=== PATIENT | male | born 1965 | race Caucasian/White ===

== ENCOUNTER 2021-02-22 10:26 | Emergency (ER) | payer OTHER ==
[~2021-02-22] VITALS: Ht 182.9 cm; Wt 93.1 kg
[2021-02-22 10:41] VITALS: BP 140/62
--- NOTE | 2021-02-22 10:45 | NUR ---
PT PRESENTS TO ED WITH C/O R FOREARM LACERATION THAT HE SUSTAINED AFTER LEANING OVER TO GRAB A CRIS TROWEL THAT WAS BALANCED ON A BUCKET, LACERATING R FOREARM. DEEP LACERATION NOTED, BLEEDING MINIMAL AND CONTROLLED WITH GAUZE. PT A&O, RESPS EVEN AND UNLABORED, BILLIE GARCIA. DAUGHTER AT BEDSIDE, CALL LIGHT IN REACH.
[2021-02-22] MEDS ORDERED: LIDOCAINE-MPF 1%, 5ML ONE ×2 (11:19→11:20)
--- NOTE | 2021-02-22 11:30 | NUR ---
ERPA AT BEDSIDE FOR LIDOCAINE ADMINISTRATION. EDT TO IRRIGATE WOUND PRIOR TO SUTURE PROCEDURE.
--- NOTE | 2021-02-22 11:40 | NUR ---
EDT AT BEDSIDE FOR WOUND IRRIGATION
--- NOTE | 2021-02-22 11:51 | NUR ---
ERPA AT BEDSIDE FOR SUTURE PROCEDURE
[2021-02-22] MEDS ORDERED: NEOSPORIN OINT. PKT 1 PACKET ONE (12:33)
--- NOTE | 2021-02-22 12:44 | NUR ---
DRESSING APPLIED OVER SUTURES. DISCHARGE INSTRUCTIONS REVIEWED, PT EDUCATED ON FOLLOW-UP FOR SUTURE REMOVAL, PT VERBALIZED UNDERSTANDING. PT A&O, RESPS EVEN AND UNLABORED, VSS, NADN. AMBULATORY TO DISCHARGE WITH STEADY GAIT.
== END 2021-02-22 12:47 | disposition home or self-care (01) ==
LOC: ED 12:09
DX: S51.811A Laceration without foreign body of right forearm, initial encounter (principal); W45.8XXA Other foreign body or object entering through skin, initial encounter; Y93.89 Activity, other specified; Y92.009 Unspecified place in unspecified non-institutional (private) residence as the place of occurrence of the external cause; Y99.8 Other external cause status
CPT/HCPCS: 12032; 99284